=== PATIENT | female | born 1980 | race Caucasian/White ===

== ENCOUNTER → 2020-10-20 19:21 | Outpatient (CLI) | payer BC, SELFPAY ==
[2020-10-20 19:46] LABS: COVID19 -Nasal RAPID Negative (Negative)
== END ==
PROVIDERS: Referring Provider Physician Assistant; Visit Provider Physician Assistant
DX: Z20.822 Contact with and (suspected) exposure to COVID-19 (principal)
CPT/HCPCS: 87635